=== PATIENT | male | born 1945 | race Caucasian/White ===

== ENCOUNTER 2016-11-10 21:38 | Inpatient (IN) | payer MEDICARE, BC ==
[2016-11-10] MEDS ORDERED: Albuterol/Ipratropium NEB.SOL* Albuterol 2.5 MG/Ipratropium 0.5 MG 3 ML INH ONE (22:03)
[2016-11-10 22:40] LABS: Hematocrit 40 % (42-52); Hemoglobin 13.1 g/dl (14.0-18.0); Mean Corpuscular HGB Conc 33 g/dl (31-36); Mean Corpuscular Hemoglobin 28 pg (27-31); Mean Corpuscular Volume 87 fL (80-94); Mean Platelet Volume 7 um3 (7.4-10.4); Red Blood Count 4.61 10^6/ul (4.0-5.4); Red Cell Distribution Width 13 % (10.5-15); White Blood Count 14.9 10^3/ul (3.5-10.8)
[2016-11-10 22:55] LABS: Albumin 2.9 g/dL (3.2-5.2); Calcium 8.6 mg/dL (8.6-10.3); EGFR African American 120.1 (>60); EGFR Non-African American 93.4 (>60); Potassium 3.8 mmol/L (3.5-5.0); Total Bilirubin 0.4 mg/dL (0.2-1.0); Total Protein 5.9 g/dL (6.4-8.9)
--- NOTE | 2016-11-10 22:59 | RAD ---
Indication: Shortness of breath. Comparison is made with previous exam dated October 14, 2016. 2 views of the chest including dual energy PA views are reviewed. There is left upper lobe and left lower lobe airspace disease with left pleural effusion consistent with left lower lobe pneumonia. Right lung field appears clear. Prominent interstitial markings are noted. This has increased to the left upper lobe. This may represent atypical pneumonia. IMPRESSION: Increasing infiltrate in the left lower lobe extending to the left upper lobe which may represent atypical pneumonia.
[2016-11-10] MEDS ORDERED: Iohexol 350* (CONTRAST) 500 ML MDV IV ONE (23:39)
[2016-11-11] MEDS ORDERED: Piperac/Tazob 3.375 gm in NS* 3.375 GM/100 ML BAG IVPB ONE (00:37)
[2016-11-11] MEDS ORDERED: Benzonatate CAP* 100 MG PO PRN (00:37)
--- NOTE | 2016-11-11 01:07 | ED ---
I, Jarrod,Claire, scribed for Jerrell Ochoa MD on 11/10/16 at 2207 . Shortness of Breath - HPI Summary HPI Summary: This 71 y/o male presents to ED for gradually worsening SOB since a week ago. Pt has had chest cold since a week ago and reports productive cough with yellow sputum. Pt tried to control his chest congestion with sudafed without much relief. Negative fever. Pt is Lung CA pt with last chemo 10 days ago. Chest tube was placed for left sided pleural effusion 6 weeks ago and removed a week ago. Primary care involves Dr. Bowman as his oncologist. - History of Current Complaint Chief Complaint: EDChestPainROMI Time Seen by Provider: 11/10/16 21:51 Hx Obtained From: Patient, Family/Supervisor Asbestos Removal - present at bedside Onset/Duration: Lasting Weeks - since a week ago, Still Present Dyspnea At: Rest Aggrevating Factors: Nothing Alleviating Factors: Nothing Associated Signs & Symptoms: Cough (Productive) - with yellow sputum production - Allergy/Home Medications Allergies/Adverse Reactions: Allergies Allergy/AdvReac Type Severity Reaction Status Date / Time No Known Allergies Allergy Verified 10/14/16 15:40 Home Medications: Home Medications Albuterol HFA INHALER* 2 puff INH Q4HR 11/10/16 [History Confirmed 11/10/16] Colace Cap* 1 tab PO DAILY 11/10/16 [History Confirmed 11/10/16] Sudafed TAB* 1 tab PO Q4HR 11/10/16 [History Confirmed 11/10/16] PMH/Surg Hx/FS Hx/Imm Hx Respiratory History: Reports: Hx Lung Cancer History: Reports: Hx Kidney Stones Infectious Disease History: No Infectious Disease History: Denies: Traveled Outside the [place] in Last 30 Days - Family History Known Family History: Positive: Cardiac Disease - positive CHF to father - Social History Lives: With Family Alcohol Use: None Hx Substance Use: No Substance Use Type: Reports: None Hx Tobacco Use: Yes Smoking Status (MU): Former Smoker Review of Systems Negative: Fever Positive: Shortness Of Breath, Cough - productive with yellow sputum Negative: Anxious, Depressed All Other Systems Reviewed And Are Negative: Yes Physical Exam Triage Information Reviewed: Yes Vital Signs On Initial Exam: Initial Vitals Temp Pulse Resp BP Pulse Ox 98.1 F 113 18 126/69 94 11/10/16 21:41 11/10/16 21:41 11/10/16 21:41 11/10/16 21:41 11/10/16 21:41 Vital Signs Reviewed: Yes Appearance: Positive: No Pain Distress, Ill-Appearing, Thin Skin: Positive: Warm Head/Face: Positive: Normal Head/Face Inspection Eyes: Positive: NICOLE ENT: Positive: Hearing grossly normal Neck: Positive: Supple Respiratory/Lung Sounds: Positive: Decreased Breath Sounds, Other - coarse bs l lung field Cardiovascular: Positive: Tachycardia Abdomen Description: Positive: Nontender, Soft Bowel Sounds: Positive: Present Musculoskeletal: Positive: Strength/ROM Intact Neurological: Positive: Sensory/Motor Intact, Alert, Oriented to Person Place, Time Diagnostics - Vital Signs Vital Signs Temp Pulse Resp BP Pulse Ox 11/10/16 21:41 98.1 F 113 18 126/69 94 - Laboratory Lab Results: Lab Results 11/10/16 11/10/16 11/10/16 Range/Units 22:25 22:25 22:25 WBC 14.9 H (3.5-10.8) 10^3/ul RBC 4.61 (4.0-5.4) 10^6/ul Hgb 13.1 L (14.0-18.0) g/dl Hct 40 L (42-52) % MCV 87 (80-94) fL MCH 28 (27-31) pg MCHC 33 (31-36) g/dl RDW 13 (10.5-15) % Plt Count 619 H (150-450) 10^3/ul MPV 7 L (7.4-10.4) um3 Neut % (Auto) 74.6 (38-83) % Lymph % (Auto) 9.7 L (25-47) % Marin % (Auto) 6.1 (1-9) % Eos % (Auto) 8.4 H (0-6) % Baso % (Auto) 1.2 (0-2) % Absolute Neuts (auto) 11.1 H (1.5-7.7) 10^3/ul Absolute Lymphs (auto) 1.5 (1.0-4.8) 10^3/ul Absolute Monos (auto) 0.9 H (0-0.8) 10^3/ul Absolute Eos (auto) 1.2 H (0-0.6) 10^3/ul Absolute Basos (auto) 0.2 (0-0.2) 10^3/ul Absolute Nucleated RBC 0 10^3/ul Nucleated RBC % 0 INR (Anticoag Therapy) (0.89-1.11) D-Dimer, Quantitative (Less Than 230) ng/mL Sodium 133 (133-145) mmol/L Potassium 3.8 (3.5-5.0) mmol/L Chloride 99 L (101-111) mmol/L Carbon Dioxide 26 (22-32) mmol/L Anion Gap 8 (2-11) mmol/L BUN 17 (6-24) mg/dL Creatinine 0.81 (0.67-1.17) mg/dL Est GFR ( Amer) 120.1 (>60) Est GFR (Non-Af Amer) 93.4 (>60) BUN/Creatinine Ratio 21.0 H (8-20) Glucose 114 H (70-100) mg/dL Lactic Acid 0.8 (0.5-2.0) mmol/L Calcium 8.6 (8.6-10.3) mg/dL Total Bilirubin 0.40 (0.2-1.0) mg/dL AST 14 (13-39) U/L ALT 14 (7-52) U/L Alkaline Phosphatase 100 (34-104) U/L Troponin I 0.00 (<0.04) ng/mL Total Protein 5.9 L (6.4-8.9) g/dL Albumin 2.9 L (3.2-5.2) g/dL Globulin 3.0 (2-4) g/dL Albumin/Globulin Ratio 1.0 (1-3) Influenza A (Rapid) (Negative) Influenza B (Rapid) (Negative) 11/10/16 11/10/16 Range/Units 22:25 22:49 WBC (3.5-10.8) 10^3/ul RBC (4.0-5.4) 10^6/ul Hgb (14.0-18.0) g/dl Hct (42-52) % MCV (80-94) fL MCH (27-31) pg MCHC (31-36) g/dl RDW (10.5-15) % Plt Count (150-450) 10^3/ul MPV (7.4-10.4) um3 Neut % (Auto) (38-83) % Lymph % (Auto) (25-47) % Marin % (Auto) (1-9) % Eos % (Auto) (0-6) % Baso % (Auto) (0-2) % Absolute Neuts (auto) (1.5-7.7) 10^3/ul Absolute Lymphs (auto) (1.0-4.8) 10^3/ul Absolute Monos (auto) (0-0.8) 10^3/ul Absolute Eos (auto) (0-0.6) 10^3/ul Absolute Basos (auto) (0-0.2) 10^3/ul Absolute Nucleated RBC 10^3/ul Nucleated RBC % INR (Anticoag Therapy) 1.11 (0.89-1.11) D-Dimer, Quantitative 740 H (Less Than 230) ng/mL Sodium (133-145) mmol/L Potassium (3.5-5.0) mmol/L Chloride (101-111) mmol/L Carbon Dioxide (22-32) mmol/L Anion Gap (2-11) mmol/L BUN (6-24) mg/dL Creatinine (0.67-1.17) mg/dL Est GFR ( Amer) (>60) Est GFR (Non-Af Amer) (>60) BUN/Creatinine Ratio (8-20) Glucose (70-100) mg/dL Lactic Acid (0.5-2.0) mmol/L Calcium (8.6-10.3) mg/dL Total Bilirubin (0.2-1.0) mg/dL AST (13-39) U/L ALT (7-52) U/L Alkaline Phosphatase (34-104) U/L Troponin I (<0.04) ng/mL Total Protein (6.4-8.9) g/dL Albumin (3.2-5.2) g/dL Globulin (2-4) g/dL Albumin/Globulin Ratio (1-3) Influenza A (Rapid) Negative (Negative) Influenza B (Rapid) Negative (Negative) Result Diagrams: 11/10/16 22:25 11/10/16 22:25 Lab Statement: Any lab studies that have been ordered have been reviewed, and results considered in the medical decision making process. - Radiology CXR Xray Interpretation: Positive (See Comments) - Increasing infiltrate in the left lower lobe extending to the left upper lobe which may represent atypical pneumonia. Radiology Interpretation Completed By: Radiologist - CT CTA chest/thorax CT Interpretation: Positive (See Comments) - Irregular pleural thickening throughout the left hemithroax consistent with neoplasm which may be metastatic. Pleural masses are noted in the fissures. THere is a masslike area of consolidation in the lower thorax. Multiple pulmonary nodules noted in corinne right hemithorax likely metastatic. Moderate to severe emphysema noted. right adenal mass noted. CT Interpretation Completed By: Radiologist - EKG 2148 Cardiac Rate: Tachycardia - 106 bpm EKG Rhythm: Sinus Tachycardia Re-Evaluation - Re-Evaluation First Eval Re-Evaluation Time: 23:15 Change: Improved Comment: MD in room to update pt and on CXR imaging and bloodwork results. Course/Dx - Diagnoses Provider Diagnoses: Pneumonia - Physician Notifications Discussed Care of Patient With: Dr. Kendall (Hospitalist) paged at 2316 PM. Call returned at 2317 PM Time Discussed With Above Provider: 23:17 Instructed by Provider To: Admit As Inpatient - Critical Care Time Critical Care Time: 30-74 min Discharge - Discharge Plan Condition: Stable Disposition: ADMITTED TO [facility] The documentation as recorded by the Jarrod young Soohyun accurately reflects the service I personally performed and the decisions made by me, Jerrell Ochoa MD.
[2016-11-11] MEDS: Albuterol HFA INHALER* 8 gm MDI INH SCH ×4 (02:12→12:00)
[2016-11-11] MEDS ORDERED: NS 0.9% 250 ML* 250 ML ONE (02:24)
[2016-11-11] MEDS: Azithromycin IV(*) 500 MG in NS 0.9% 250 ML* 250 ML IVPB SCH (02:32)
[2016-11-11] MEDS: Heparin VIAL(*) 5000 UNITS/ML VIAL (FIVE THOUSAND) SUBCUT SCH ×3 (05:27→22:00)
--- NOTE | 2016-11-11 07:56 | RAD ---
INDICATION: Shortness breast history of lung carcinoma, elevated d-dimer. COMPARISON: Comparison is made to prior CT of the chest, abdomen and pelvis from October 14, 2016. TECHNIQUE: A CT angiogram of the chest was performed with intravenous following intravenous injection of 64 ml of Omnipaque 350 nonionic contrast. Contiguous axial sections were obtained from the lung apices through the lung bases. Images were reconstructed in the coronal and sagittal planes. FINDINGS: There is relatively homogeneous opacification of the pulmonary arteries. No intraluminal filling defect or pulmonary embolism is seen. The heart appears mildly enlarged. There is a pxmr-xr-clwupdia sized pericardial effusion which has increased in size from the prior study. The thoracic aorta is normal in caliber and demonstrates homogeneous contrast opacification. There are enlarged lymph nodes present within the mediastinum in the aorticopulmonary and subcarinal regions measuring up to 1.5 cm in transverse dimension which appear to progressed slightly from the prior study. There is nodular pleural thickening present throughout the left hemithorax with more prominent nodular masses present at the left lung base which have progressed from the prior exam. There is also nodular pleural thickening along the major fissure. There are multiple small pulmonary nodules within the right lung which have increased in size from the prior exam. The largest nodule measures up to 0.8 cm in size in previously measured up to 0.4 cm in size. There is moderate bilateral emphysematous change. There is a moderate size right pleural effusion and a small left pleural effusion which have also progressed. There are several hypodense hepatic lesions. The majority of these appear to be fluid density and likely represent cysts. No significant focal osseous abnormality is seen. IMPRESSION: 1. NO EVIDENCE FOR PULMONARY EMBOLISM. 2. SMALL TO MODERATE-SIZE PERICARDIAL EFFUSION SLIGHTLY INCREASED IN SIZE. 3. MODERATE SIZE RIGHT PLEURAL EFFUSION AND SMALL LEFT PLEURAL EFFUSION. THE RIGHT PLEURAL EFFUSION HAS INCREASED IN SIZE. 4. NODULAR PLEURAL THICKENING THROUGHOUT THE LEFT HEMITHORAX DEMONSTRATING INTERVAL PROGRESSION. 5. MULTIPLE PULMONARY NODULES IN THE RIGHT LUNG DEMONSTRATING INTERVAL PROGRESSION.
[2016-11-11] MEDS: Docusate CAP* 100 MG PO SCH (08:05)
[2016-11-11] MEDS: Folic Acid TAB* 1 MG PO SCH (08:06)
[2016-11-11] MEDS ORDERED: Albuterol/Ipratropium NEB.SOL* Albuterol 2.5 MG/Ipratropium 0.5 MG 3 ML INH PRN (10:22)
[2016-11-11] MEDS ORDERED: Hemorrhoidal OINT PR PRN (10:25)
--- NOTE | 2016-11-11 13:58 | HP ---
HISTORY AND PHYSICAL: DATE OF ADMISSION: 11/11/16 CHIEF COMPLAINT: Chest pain. HISTORY OF PRESENT ILLNESS: The patient is a 71-year-old gentleman who says he started having chest pain from coughing so much from his phlegm that he had to come to the ER for evaluation. He has a cough since August and it is occasionally productive of yellow thick phlegm. He has had a lot of postnasal drip and is also using quite a bit of Sudafed to help dry that up. That sometimes work, but he can only usually for 2 hours. He denies any blood in his sputum. He has not been sleeping well either, but he has no fever. He came in today because of the chest pain, which he admits is worse with the cough. It is in the center, it does not radiate. He has no nausea, vomiting associated with it. He had 2 cycles of chemo last Thursday. He is due for another cycle this November 11. 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 CURRENT MEDICATIONS: As follows: 1. Colace 1 tablet daily. 2. Albuterol inhaler 2 puffs every 4 hours as needed. 3. Sudafed 1 tablet every 4 hours. 4. Folic acid 1 mg daily. ALLERGIES: He has no known drug allergies. FAMILY HISTORY: Father of congestive heart failure. He has 14 brothers and sisters; one in an automobile accident, the other in a fire, one brother was a smoker who of lung cancer at age 55, and another brother of an CO in his 50s. SOCIAL HISTORY: The patient is . Lives with his , John, who is also his healthcare proxy. He is retired. Still smokes 4 to 5 cigarettes a day , was smoking up to a pack a day and has been smoking since age 14. At this point, he does not think he can stop. REVIEW OF SYSTEMS: A 14-point review of systems was completed with the patient. All pertinent positives and negatives are in the history of present illness, otherwise it is negative. PHYSICAL EXAMINATION GENERAL: A pleasant gentleman, lying in bed, in no acute distress. VITAL SIGNS: Temperature 98.4 degrees, heart rate 99 beats per minute, respiratory rate 20 breaths per minute, pulse ox 93%, and blood pressure 109/65. HEENT: Normocephalic and atraumatic. Pupils are equal, round, and reactive to light. Moist mucous membranes. NECK: Supple. No JVD, bruits, palpable thyroid or lymphadenopathy. CHEST: Clear to auscultation and percussion bilaterally. CARDIOVASCULAR: S1, S2 appreciated. ABDOMEN: Positive bowel sounds in all 4 quadrants. Soft, nontender, and nondistended. EXTREMITIES: No cyanosis, clubbing, or edema; +2 peripheral pulses bilaterally. NEUROLOGIC: Alert and oriented x3. Moves all extremities. SKIN: No rashes or abnormalities. DIAGNOSTIC STUDIES/LAB DATA: White count is 14.9, hemoglobin 13.1, hematocrit 40, and platelets 619. Sodium 133, potassium 3.8, chloride 99, CO2 of 26, BUN 17, creatinine 0.81, and glucose 114. INR is 1.11. D-dimer is 740. Influenza A is negative. CTA of his chest was interpreted by the night reader as no filling defects were seen in the main, central or proximal segmental pulmonary arteries. Irregular pleural thickening throughout with left hemithorax consistent with neoplasm, which may be metastatic. Pleural masses are noted in the tissue. There is a mass-like area of consolidation in the lower thorax. Multiple pulmonary nodules in the right hemithorax, likely metastatic. Goyfigfm-sh-wxfink emphysema noted. Right adrenal mass noted. ASSESSMENT AND PLAN: 1. Chest pain: Almost certainly from cough associated with his lung cancer. Less likely pneumonia. For now, we will start him on Zosyn and Zithromax. Oncology to see in the morning. If the patient remains afebrile and his labs are fairly unremarkable, and his symptoms remain the same, he may be able to go home as early as the next day. We will check sputum C and S, urine for legionella and pneumococcal antigen. 2. Stage IV lung cancer: Chemotherapy and treatment as per Oncology. 3. DVT prophylaxis: Heparin subcu. 4. Code status: The patient is a full code. TIME SPENT: Over 75 minutes were spent on this H and P; more than 40 minutes of which were spent in direct pikx-sz-eoeg contact with the patient, in evaluation, physical exam, counseling, and coordination of care. CC: Kaleb Bowman MD * [id number]/CPS #: [id number] JAROCHO
[2016-11-11] MEDS: Ibuprofen TAB* 400 MG PO PRN (15:59)
--- NOTE | 2016-11-11 16:28 | ECHO ---
Patient: GOSIA MCGUIRE [facility] Rec#: [id number] : 1945 Date: 11/11/2016 Age: 71y Height: 170.18 cm / 67.0 in Weight: 63.5 kg / 140.0 lbs Sex: M BSA: 1.74 Room#: [facility] Admit Date#: 11/11/2016 Type: Inpatient Referring: Kaleb Bowman MD Reading: Dg Gray MD Manager Talent: Jeana Moss RN RDCS Manager Talent: Clementine Schuster CC: Edin Olivera MD Transthoracic Echocardiogram Indication: SOB, Pericardial Effusion BP: 119/65 HR: 93 Rhythm: NSR Findings History: Lung Cancer, chemotherapy, 1 week post removal of chest tube for left pleural effusion, former smoker, HLD. Technical Comments: The study is technically limited due to the patient's smoking history. Completed at 1405. Left Ventricle: The left ventricular chamber size is normal. There is a prominent septal knuckle. Global left ventricular wall motion and contractility are within normal limits. There is normal left ventricular systolic function. The estimated ejection fraction is 60-65%. There is an E to A reversal in the mitral valve flow pattern suggestive of diastolic dysfunction. Left Atrium: The left atrial chamber size is normal. Right Ventricle: Moderator Band present. The right ventricle is slightly dilated. The right ventricular global systolic function is normal. Right Atrium: The right atrial cavity size is normal. Aortic Valve: The aortic valve is trileaflet. The aortic valve leaflets are mildly thickened. There is no evidence of aortic regurgitation. There is no evidence of aortic stenosis. Mitral Valve: The mitral valve leaflets are mildly thickened. There is a trace of mitral regurgitation. There is no evidence of mitral stenosis. Tricuspid Valve: The tricuspid valve leaflets are normal. There is mild tricuspid regurgitation. Unable to estimate the right ventricular systolic pressure. There is no tricuspid stenosis. Pulmonic Valve: The pulmonic valve appears normal. There is mild pulmonic regurgitation. There is no pulmonic stenosis. Pericardium: There is a small pericardial effusion. There are no signs of significant hemodynamic compromise. A left pleural effusion is present. Aorta: There is no dilatation of the ascending aorta. The aortic arch is not well visualized. There is no dilation of the aortic root. Pulmonary Artery: The main pulmonary artery appears normal. Venous: The inferior vena cava appears normal in size. There is a greater than 50% respiratory change in the inferior vena cava dimension. Conclusions Global left ventricular wall motion and contractility are within normal limits. There is normal left ventricular systolic function. The estimated ejection fraction is 60-65%. The right ventricular global systolic function is normal. The aortic valve leaflets are mildly thickened. There is no evidence of aortic regurgitation. There is a trace of mitral regurgitation. There is mild tricuspid regurgitation. Unable to estimate the right ventricular systolic pressure. There is a small pericardial effusion. There are no signs of significant hemodynamic compromise. A left pleural effusion is present. There is no dilatation of the ascending aorta. Measurements Name Value Normal Range RVDdMajor (2D) 4.5 cm (2.2 - 4.4) RAd ISD 4CH 4.8 cm (3.4 - 4.9) RA (A4C)W 4.5 cm (2.9 - 4.6) IVSd (2D) 0.9 cm (0.6 - 1) LVPWd (2D) 0.9 cm (0.6 - 1) LVIDd (2D) 3.7 cm (3.6 - 5.4) LVIDs (2D) 3 cm - LV FS 19 % - Aortic Annulus 1.7 cm (1.4 - 2.6) Ao root diameter (2D) 3 cm (2.1 - 3.5) Ascending Ao 3.3 cm (2.1 - 3.4) LA dimension (AP) 2D 3 cm (2.3 - 3.8) LAd ISD 4CH 4.2 cm (2.9 - 5.3) LA ISD 4CH W 3.8 cm (2.5 - 4.5) Name Value Normal Range LA ESV SP 4CH (A/L) 31 ml - LA ESV SP 2CH (A/L) 38 ml - LA ESV BP (A/L) 36 ml - LA ESV BP (A/L) index 20.82 ml/m2 - LA ESV SP 4CH (MOD) 28 ml - LA ESV SP 2CH (MOD) 36 ml - Name Value Normal Range MV E-wave Vmax 0.7 m/sec - MV deceleration time 265 msec - MV A-wave Vmax 0.95 m/sec - MV E:A ratio 0.7 ratio - Name Value Normal Range AV Vmax 1.7 m/sec - AV VTI 28 cm - AV peak gradient 11.16 mmHg - AV mean gradient 7.02 mmHg - LVOT Vmax 1.3 m/sec - LVOT VTI 19 cm - LVOT peak gradient 6.42 mmHg - LVOT mean gradient 3.02 mmHg - Name Value Normal Range IVC diameter 1.4 cm - Name Value Normal Range PV Vmax 1 m/sec - PV peak gradient 3.95 mmHg -
[2016-11-11] MEDS: Albuterol 2.5 MG/3 ML NEB.SOL* (0.083%) INH SCH ×3 (16:36→23:20)
[2016-11-11] MEDS ORDERED: Zolpidem TAB* 5 MG PO PRN (21:00)
[2016-11-12] MEDS: Azithromycin IV(*) 500 MG in NS 0.9% 250 ML* 250 ML IVPB SCH (01:52)
[2016-11-12] MEDS: Albuterol 2.5 MG/3 ML NEB.SOL* (0.083%) INH SCH ×2 (03:47→07:50)
[2016-11-12 04:02] VITALS: BP 109/65
[2016-11-12] MEDS: Heparin VIAL(*) 5000 UNITS/ML VIAL (FIVE THOUSAND) SUBCUT SCH (06:14)
[2016-11-12 07:07] LABS: Hematocrit 39 % (42-52); Hemoglobin 12.9 g/dl (14.0-18.0); Mean Corpuscular HGB Conc 33 g/dl (31-36); Mean Corpuscular Hemoglobin 29 pg (27-31); Mean Corpuscular Volume 87 fL (80-94); Mean Platelet Volume 8 um3 (7.4-10.4); Red Blood Count 4.52 10^6/ul (4.0-5.4); Red Cell Distribution Width 13 % (10.5-15); White Blood Count 12.7 10^3/ul (3.5-10.8)
[2016-11-12 08:16] LABS: BUN/Creatinine Ratio 15.3 (8-20); Calcium 8.5 mg/dL (8.6-10.3); EGFR African American 113.6 (>60); EGFR Non-African American 88.4 (>60); Potassium 4.3 mmol/L (3.5-5.0)
[2016-11-12] MEDS: Docusate CAP* 100 MG PO SCH (08:56)
[2016-11-12] MEDS: Ibuprofen TAB* 400 MG PO PRN (08:56)
[2016-11-12] MEDS: Folic Acid TAB* 1 MG PO SCH (08:56)
[2016-11-12] MEDS ORDERED: Albuterol 2.5 MG/3 ML NEB.SOL* (0.083%) INH SCH ×2 (10:00→13:00)
[2016-11-12] MEDS ORDERED: Nicotine GUM* 2 MG PO PRN (10:20)
== END 2016-11-12 13:05 | disposition home or self-care (01) | DRG 194 ==
LOC: ED 21:38 → MEDTELE 11-11 00:50 → MED 11-12 02:50
PROVIDERS: ADMIT Internal Medicine; ATTEND Internal Medicine Hematology & Oncology
DX: J18.9 Pneumonia, unspecified organism (principal); C34.90 Malignant neoplasm of unspecified part of unspecified bronchus or lung; I31.3 Pericardial effusion (noninflammatory); E78.5 Hyperlipidemia, unspecified; F17.210 Nicotine dependence, cigarettes, uncomplicated; R09.82 Postnasal drip
CPT/HCPCS: 36415; 71020; 71275; 80048; 80053; 83605; 84484; 85025; 85379; 85610; 87040; 87070; 87205; 87502; 87899; 93005; 93306; 94640; 94760; 99233; 99238; A9270-GY; J0456; J1644; J2543; Q9967

== ENCOUNTER 2016-11-27 09:17 | Inpatient (IN) | payer MEDICARE, BC ==
--- NOTE | 2016-11-27 09:46 | RAD ---
INDICATION: Neurologic changes, code astorga. COMPARISON: Comparison is made with a prior outside MRI of the brain from September 24, 2016. TECHNIQUE: Contiguous axial sections of the brain were obtained from the skull base to the vertex without contrast. FINDINGS: There are relatively large areas of decreased density in the subcortical white matter most consistent with vasogenic edema present in the inferior right frontal, right temporal and bilaterally within the parietal lobes suspicious for metastatic disease. This is a new finding from the prior MRI study there is localized mass effect with effacement of sulci without midline shift. No hemorrhage is seen. No significant focal osseous abnormality is seen. The visualized portion of the paranasal sinuses and mastoid air cells appear clear. The results of this exam were discussed with the referring clinician at 0935 hours. IMPRESSION: MULTIPLE RELATIVELY LARGE AREAS OF VASOGENIC EDEMA WITH LOCALIZED MASS EFFECT SUSPICIOUS FOR METASTATIC DISEASE IN THIS PATIENT WITH A HISTORY OF LUNG CARCINOMA. RECOMMEND AN MRI OF THE BRAIN WITHOUT AND WITH CONTRAST FOR FURTHER EVALUATION.
[2016-11-27 09:57] LABS: Hematocrit 43 % (42-52); Hemoglobin 13.9 g/dl (14.0-18.0); Mean Corpuscular HGB Conc 33 g/dl (31-36); Mean Corpuscular Hemoglobin 28 pg (27-31); Mean Corpuscular Volume 87 fL (80-94); Mean Platelet Volume 8 um3 (7.4-10.4); Red Blood Count 4.89 10^6/ul (4.0-5.4); Red Cell Distribution Width 14 % (10.5-15); White Blood Count 13.2 10^3/ul (3.5-10.8)
[2016-11-27 10:32] LABS: Albumin 3.2 g/dL (3.2-5.2); BUN/Creatinine Ratio 27.5 (8-20); Calcium 8.9 mg/dL (8.6-10.3); EGFR African American 121.9 (>60); EGFR Non-African American 94.8 (>60); Globulin 3.1 g/dL (2-4); HDL Cholesterol 41.1 mg/dL; Potassium 4.4 mmol/L (3.5-5.0); Total Bilirubin 0.6 mg/dL (0.2-1.0); Total Protein 6.3 g/dL (6.4-8.9); Troponin I 0.01 ng/mL (<0.04)
[2016-11-27] MEDS ORDERED: Gadoteridol* (CONTRAST) 279.3 MG/ML 10 ML IV ONE (10:36)
--- NOTE | 2016-11-27 11:07 | RAD ---
INDICATION: Intracerebral cerebral metastatic disease, history of lung cancer. COMPARISON: Comparison is made with a prior MRI of the brain from September 24, [address] of the brain from November 27, 2016. TECHNIQUE: Sagittal T1, axial T1, T2, susceptibility, FLAIR and diffusion-weighted images were obtained. In addition, axial, sagittal and coronal T1-weighted images were obtained following intravenous injection of 14 ml of ProHance contrast. FINDINGS: There are multiple nodular enhancing lesions present bilaterally within the frontal, temporal, parietal and occipital lobes which are new from the prior MRI study. There are relatively large areas of surrounding vasogenic edema present in the subcortical white matter causing local mass effect and displacement of the sulci. No midline shift is seen. No hemorrhage is seen. The visualized portion of the paranasal sinuses and mastoid air cells appear clear. IMPRESSION: MULTIPLE NEW ENHANCING LESIONS WITH SURROUNDING VASOGENIC EDEMA CONSISTENT WITH METASTATIC DISEASE.
--- NOTE | 2016-11-27 11:30 | RAD ---
Indication: Confusion. Single frontal view of the chest performed at 1052 hours was reviewed. Comparison is made with previous exam dated November 10, 2016. Cardiomegaly is noted. Left pleural effusion is noted. Airspace disease in left hemithorax persists. Small right pleural effusion is noted. IMPRESSION: LEFT-SIDED AIRSPACE DISEASE WITH CONSISTENT WITH PNEUMONIA WITH LEFT PLEURAL EFFUSION. FINDINGS ARE SIMILAR TO THAT SEEN PREVIOUSLY.
[2016-11-27] MEDS ORDERED: Dexamethasone IV* 4 MG/ML 5 ML VIAL (20 MG) IVPB ONE (11:41)
[2016-11-27 12:26] LABS: Urine Bilirubin Negative (Negative); Urine Glucose Negative (Negative); Urine Nitrite Negative (Negative)
--- NOTE | 2016-11-27 13:25 | ED ---
Lynnette Pope Alok, scribed for David Howell MD on 11/27/16 at 0923 . Neurological HPI - HPI Summary HPI Summary: 71 y/o male presents to the ED BIBA. Pt is unable to speak but able to nod yes and no. Pt is alert and oriented to place. Pt nods yes to being unable to speak since approximately 0830 after he woke up. EMS reports that pt's reported pt woke up normal and then suddenly victor an episode of slurred speech followed by speech aphasia. Pt points at facial pain but otherwise has no other complaints besides being unable to vocally communicate. PMHx includes stage 4 lung cancer. Pt takes xanax. Xuan Limon was called at 0922. - History of Current Complaint Stated Complaint: SLURRED SPEACH Time Seen by Provider: 11/27/16 09:22 Hx Obtained From: Patient Onset/Duration: Sudden Onset, Started minutes ago, Still Present Timing: Constant Onset Severity: Moderate Current Severity: Moderate Neurological Deficit Location: Facial, RUE, LUE, RLE, LLE Character: Weak, Impaired Speech - slurring, aphasia Aggravating: Nothing Alleviating: Nothing Associated Signs and Symptoms: Positive: Weakness, Pain - facial, Impaired Speech - slurred, aphasia Related Hx: Recent Illness - Stage 4 lung cancer - Additional Pertinent History Primary Care Physician: ANGEL - Allergy/Home Medications Allergies/Adverse Reactions: Allergies Allergy/AdvReac Type Severity Reaction Status Date / Time No Known Allergies Allergy Verified 10/14/16 15:40 Home Medications: Home Medications ALPRAZolam TAB* [Xanax TAB*] 0.25 mg PO TID PRN 11/27/16 [History Confirmed 02/07] Acetaminop/Codeine 30 MG TAB* [Tylenol/Codeine 30 MG TAB*] 1 tab PO Q8H PRN 02/07 [History Confirmed 11/27/16] Albuterol HFA INHALER* [Ventolin HFA Inhaler*] 2 puff INH Q4H PRN 11/27/16 [ History Confirmed 11/27/16] Docusate CAP* [Colace Cap*] 100 mg PO DAILY PRN 11/27/16 [History Confirmed 02/07] Folic Acid TAB* [Folvite TAB*] 1 mg PO DAILY 11/27/16 [History Confirmed ] PMH/Surg Hx/FS Hx/Imm Hx Endocrine/Hematology History: Denies: Hx Blood Disorders, Hx Diabetes Cardiovascular History: Denies: Hx Hypertension Respiratory History: Reports: Hx Lung Cancer Denies: Hx Asthma History: Reports: Hx Kidney Stones Denies: Hx Renal Disease Sensory History: Reports: Hx Contacts or Glasses Opthamlomology History: Reports: Hx Contacts or Glasses Psychiatric History: Reports: Hx Anxiety - when he cant breathe - Cancer History Cancer Type, Location and Year: LUNG CA - Surgical History Surgery Procedure, Year, and Place: CHEST. pigtail in last six weeks to left chest, due to pleral fluid. lithrotripsy x4 for stones Hx Anesthesia Reactions: No - Family History Known Family History: Positive: Cardiac Disease - positive CHF to father - Social History Occupation: Retired Lives: With Family - Alcohol Use: None Hx Substance Use: No Substance Use Type: Reports: None Hx Tobacco Use: Yes Smoking Status (MU): Former Smoker Review of Systems Negative: Fever ENT: Other - facial pain Neurological: Other - speech aphasia Positive: Weakness, Slurred Speech All Other Systems Reviewed And Are Negative: Yes Physical Exam - Summary Physical Exam Summary: VITAL SIGNS: Reviewed. GENERAL: ~Patient is a well developed and nourished male who is lying comfortable in the stretcher. ~Patient is not in any acute respiratory distress. HEAD AND FACE: Normocephalic EYES: PERRLA, EOMI x 2. EARS: Hearing grossly intact. MOUTH: Oropharynx within normal limits. NECK: Supple, trachea is midline, no adenopathy, no JVD, no carotid bruit. CHEST: Symmetric, no tenderness at palpation LUNGS: Clear to auscultation bilaterally. No wheezing or crackles. CVS: Regular rate and rhythm, S1 and S2 present, no murmurs or gallops appreciated. ABDOMEN: Soft, non-tender. Bowel sounds are normal. No abdominal abnormal pulsations. EXTREMITIES: Upper and lower extremity slight weakness. NEURO: Alert and oriented to place. Twitching right side face. Patient is unable to vocalize. SKIN: Dry and warm Triage Information Reviewed: Yes Vital Signs On Initial Exam: Vital Signs (72 hours) 11/27/16 11/27/16 11/27/16 09:31 09:32 09:33 Temperature 99.3 F Pulse Rate 105 105 Respiratory 24 27 Rate Blood Pressure 148/83 148/83 (mmHg) O2 Sat by Pulse 93 92 Oximetry 11/27/16 11/27/16 11/27/16 09:40 09:45 09:47 Temperature 99.3 F Pulse Rate 106 105 105 Respiratory 20 Rate Blood Pressure 142/81 115/70 145/86 (mmHg) O2 Sat by Pulse 95 93 92 Oximetry Vital Signs Reviewed: Yes Diagnostics - Vital Signs Vital Signs Temp Pulse Resp BP Pulse Ox 11/27/16 11:15 104 144/79 96 11/27/16 11:02 103 97 11/27/16 11:00 136/81 11/27/16 10:54 98 11/27/16 10:00 103 96 11/27/16 09:51 106 145/86 93 11/27/16 09:47 99.3 F 105 20 145/86 92 11/27/16 09:45 105 115/70 93 11/27/16 09:40 106 142/81 95 11/27/16 09:33 105 27 92 11/27/16 09:32 99.3 F 105 24 148/83 93 11/27/16 09:31 148/83 - Laboratory Lab Results: Lab Results 11/27/16 11/27/16 11/27/16 Range/Units 09:45 09:45 09:45 WBC 13.2 H (3.5-10.8) 10^3/ul RBC 4.89 (4.0-5.4) 10^6/ul Hgb 13.9 L (14.0-18.0) g/dl Hct 43 (42-52) % MCV 87 (80-94) fL MCH 28 (27-31) pg MCHC 33 (31-36) g/dl RDW 14 (10.5-15) % Plt Count 439 (150-450) 10^3/ul MPV 8 (7.4-10.4) um3 Neut % (Auto) 77.0 (38-83) % Lymph % (Auto) 7.8 L (25-47) % Frederick % (Auto) 5.8 (1-9) % Eos % (Auto) 9.1 H (0-6) % Baso % (Auto) 0.3 (0-2) % Absolute Neuts (auto) 10.2 H (1.5-7.7) 10^3/ul Absolute Lymphs (auto) 1.0 (1.0-4.8) 10^3/ul Absolute Monos (auto) 0.8 (0-0.8) 10^3/ul Absolute Eos (auto) 1.2 H (0-0.6) 10^3/ul Absolute Basos (auto) 0 (0-0.2) 10^3/ul Absolute Nucleated RBC 0 10^3/ul Nucleated RBC % 0 INR (Anticoag Therapy) 0.98 (0.89-1.11) APTT 32.0 (26.0-36.3) seconds Sodium (133-145) mmol/L Potassium (3.5-5.0) mmol/L Chloride (101-111) mmol/L Carbon Dioxide (22-32) mmol/L Anion Gap (2-11) mmol/L BUN (6-24) mg/dL Creatinine (0.67-1.17) mg/dL Est GFR ( Amer) (>60) Est GFR (Non-Af Amer) (>60) BUN/Creatinine Ratio (8-20) Glucose (70-100) mg/dL Lactic Acid (0.5-2.0) mmol/L Calcium (8.6-10.3) mg/dL Total Bilirubin (0.2-1.0) mg/dL AST (13-39) U/L ALT (7-52) U/L Alkaline Phosphatase (34-104) U/L Troponin I (<0.04) ng/mL Total Protein (6.4-8.9) g/dL Albumin (3.2-5.2) g/dL Globulin (2-4) g/dL Albumin/Globulin Ratio (1-3) Triglycerides mg/dL Cholesterol mg/dL LDL Cholesterol mg/dL HDL Cholesterol mg/dL Urine Color Yellow Urine Appearance Clear Urine pH 5.0 (5-9) Ur Specific [place] 1.016 (1.010-1.030) Urine Protein Negative (Negative) Urine Ketones 1+ H (Negative) Urine Blood Negative (Negative) Urine Nitrate Negative (Negative) Urine Bilirubin Negative (Negative) Urine Urobilinogen Negative (Negative) Ur Leukocyte Esterase Negative (Negative) Urine Glucose Negative (Negative) Blood Type Antibody Screen 11/27/16 11/27/1617 Range/Units 09:45 09:45 09:45 WBC (3.5-10.8) 10^3/ul RBC (4.0-5.4) 10^6/ul Hgb (14.0-18.0) g/dl Hct (42-52) % MCV (80-94) fL MCH (27-31) pg MCHC (31-36) g/dl RDW (10.5-15) % Plt Count (150-450) 10^3/ul MPV (7.4-10.4) um3 Neut % (Auto) (38-83) % Lymph % (Auto) (25-47) % Frederick % (Auto) (1-9) % Eos % (Auto) (0-6) % Baso % (Auto) (0-2) % Absolute Neuts (auto) (1.5-7.7) 10^3/ul Absolute Lymphs (auto) (1.0-4.8) 10^3/ul Absolute Monos (auto) (0-0.8) 10^3/ul Absolute Eos (auto) (0-0.6) 10^3/ul Absolute Basos (auto) (0-0.2) 10^3/ul Absolute Nucleated RBC 10^3/ul Nucleated RBC % INR (Anticoag Therapy) (0.89-1.11) APTT (26.0-36.3) seconds Sodium 136 (133-145) mmol/L Potassium 4.4 (3.5-5.0) mmol/L Chloride 103 (101-111) mmol/L Carbon Dioxide 25 (22-32) mmol/L Anion Gap 8 (2-11) mmol/L BUN 22 (6-24) mg/dL Creatinine 0.80 (0.67-1.17) mg/dL Est GFR ( Amer) 121.9 (>60) Est GFR (Non-Af Amer) 94.8 (>60) BUN/Creatinine Ratio 27.5 H (8-20) Glucose 104 H (70-100) mg/dL Lactic Acid 0.7 (0.5-2.0) mmol/L Calcium 8.9 (8.6-10.3) mg/dL Total Bilirubin 0.60 (0.2-1.0) mg/dL AST 16 (13-39) U/L ALT 10 (7-52) U/L Alkaline Phosphatase 121 H (34-104) U/L Troponin I 0.01 (<0.04) ng/mL Total Protein 6.3 L (6.4-8.9) g/dL Albumin 3.2 (3.2-5.2) g/dL Globulin 3.1 (2-4) g/dL Albumin/Globulin Ratio 1.0 (1-3) Triglycerides 109 mg/dL Cholesterol 174 mg/dL LDL Cholesterol 111 mg/dL HDL Cholesterol 41.1 mg/dL Urine Color Urine Appearance Urine pH (5-9) Ur Specific [place] (1.010-1.030) Urine Protein (Negative) Urine Ketones (Negative) Urine Blood (Negative) Urine Nitrate (Negative) Urine Bilirubin (Negative) Urine Urobilinogen (Negative) Ur Leukocyte Esterase (Negative) Urine Glucose (Negative) Blood Type A Positive Antibody Screen Negative Result Diagrams: 11/27/16 09:45 11/27/16 09:45 Lab Statement: Any lab studies that have been ordered have been reviewed, and results considered in the medical decision making process. - Radiology Brain MRI Xray Interpretation: Positive (See Comments) - IMPRESSION: MULTIPLE NEW ENHANCING LESIONS WITH SURROUNDING VASOGENIC EDEMA CONSISTENT WITH METASTATIC DISEASE. Radiology Interpretation Completed By: Radiologist CXR Xray Interpretation: Positive (See Comments) - IMPRESSION: LEFT-SIDED AIRSPACE DISEASE WITH CONSISTENT WITH PNEUMONIA WITH LEFT PLEURAL EFFUSION. FINDINGS ARE SIMILAR TO THAT SEEN PREVIOUSLY. Radiology Interpretation Completed By: Radiologist - CT Brain CT CT Interpretation: Positive (See Comments) - IMPRESSION: MULTIPLE RELATIVELY LARGE AREAS OF VASOGENIC EDEMA WITH LOCALIZED MASS EFFECT SUSPICIOUS FOR METASTATIC DISEASE IN THIS PATIENT WITH A HISTORY OF LUNG CARCINOMA. RECOMMEND AN MRI OF THE BRAIN WITHOUT AND WITH CONTRAST FOR FURTHER EVALUATION. CT Interpretation Completed By: Radiologist - EKG 0929 Cardiac Rate: Tachycardia EKG Rhythm: Sinus Tachycardia - 106 bpm EKG Interpretation: No ST elevation NIH Scale - NIH Scale Level of Consciousness: Alert/Keenly Responsive Ask Patient the Month and His/Her Age: Both Correct Ask Pt to Open/Close Eyes and Business Continuity Management Director/Release Non-Paretic Hand: Both Correctly Best Gaze (Only Horizontal Eye Movement): Normal Visual Field Testing: No Visual Loss Facial Paresis-Pt to Smile & Close Eyes or Grimace Symmetry: Normal/Symmetrical Motor Function - Right Arm: Drifts LT 10 seconds Motor Function - Left Arm: No Drift-Holds 10 Seconds Motor Function - Right Leg: Drifts LT 10 seconds Motor Function - Left Leg: No Drift-Holds 10 Seconds Limb Ataxia-Must be out of Proportion to Weakness Present: Absent Sensory (Use Pinprick to Test Arms/Legs/Trunk/Face): Normal Best Language (Describe Picture, Name Items): Severe Aphasia Dysarthria (Read Several Words): Unintelligible or Mute Extinction and Inattention: No Abnormality Total Score: 6 Re-Evaluation - Re-Evaluation First Eval Re-Evaluation Time: 11:42 Course/Dx - Course Course Of Treatment: 71 y/o male presents to the ED BIBA. Pt is unable to speak but able to nod his head for yes and no. Pt is alert and oriented to place. Pt nods yes to being unable to speak since approximately 0830 after he woke up. EMS reports that pt's reported pt woke up normal and then suddenly victor an episode of slurred speech followed by speech aphasia. Pt points at facial pain but otherwise has no other complaints besides being unable to vocally communicate. PMHx includes stage 4 lung cancer. Pt takes xanax. Xuan Limon was called at 0922. Assessment/Plan: Blood work within normal limits except WBC 13.2 H with no bandemia. Glucose 104 H. Urine Negative. Head CT shows IMPRESSION: MULTIPLE RELATIVELY LARGE AREAS OF VASOGENIC EDEMA WITH LOCALIZED MASS EFFECT SUSPICIOUS FOR METASTATIC DISEASE IN THIS PATIENT WITH A HISTORY OF LUNG CARCINOMA. RECOMMEND AN MRI OF THE BRAIN WITHOUT AND WITH CONTRAST FOR FURTHER EVALUATION. Following Head CT did Brain MRI which shows IMPRESSION: MULTIPLE NEW ENHANCING LESIONS WITH SURROUNDING VASOGENIC EDEMA CONSISTENT WITH METASTATIC DISEASE. Pt continues to have some right sided weakness and was given Dexamethasone IV. Discussed case with Dr. Taylor (Oncology) who agreed to admit pt for further workup and management. She also mentioned that pt does not require neurosurgery consult at this time. If needed she will as for consult from neurosurgery. She also does not want any anti-seizure medication. Pt is hemodynamically stable. Alert and oriented . Everything was discussed and agreed upon by the pt and the pts . - Differential Dx Differential Diagnoses Neuro: Positive: Tapia's Palsy, Cerebrovascular Accident, Seizure Disorder, Transient Ischemic Attack - Diagnoses Provider Diagnoses: Cerebral edema, Metastatic disease During the Visit The Following Alert/Code Occurred: Code Limon - Called 921 - Physician Notifications Discussed Care of Patient With: Dr. Taylor (Hematology) @ 1140 - agrees to giving pt dextromethasone. Does not allow anti-seizure medications. Will admit pt. Discharge - Discharge Plan Condition: Guarded Disposition: ADMITTED TO [facility] documentation as recorded by the Lynnette young Alok accurately reflects the service I personally performed and the decisions made by , David Howell MD.
[2016-11-27] MEDS ORDERED: Docusate CAP* 100 MG PO PRN (14:02)
[2016-11-27] MEDS ORDERED: Albuterol HFA INHALER* 8 gm MDI INH PRN (14:02)
[2016-11-27] MEDS ORDERED: Acetaminop/Codeine 30 MG TAB* 1 TAB (300 MG/30 MG) PO PRN (14:02)
[2016-11-27] MEDS ORDERED: LORazepam INJ* 2 MG/ML 1 ML VIAL IV PUSH PRN (14:02)
[2016-11-27] MEDS: levETIRAcetam 500 MG IVPREMIX* 500 MG/100 ML BAG IV SCH (15:49)
[2016-11-27] MEDS ORDERED: Dexamethasone IV* 4 MG in NS 0.9% 50 ML* 50 ML IVPB SCH (18:00)
[2016-11-27] MEDS: Dexamethasone IV* 4 MG/ML 1 ML (4 MG) IVPB SCH (18:32)
[2016-11-28] MEDS: Dexamethasone IV* 4 MG/ML 1 ML (4 MG) IVPB SCH ×5 (00:09→21:45)
[2016-11-28] MEDS: levETIRAcetam 500 MG IVPREMIX* 500 MG/100 ML BAG IV SCH ×2 (02:54→15:36)
--- NOTE | 2016-11-28 05:12 | RADMED ---
RADIATION ONCOLOGY CONSULTATION NOTE: DATE OF CONSULT: 11/27/16 - ROOM #[id number] REFERRING PHYSICIAN: CECELIA Bernard DIAGNOSIS: Metastatic non-small cell lung cancer, AJCC stage IV. HISTORY OF PRESENT ILLNESS: Mr. Monet is a 71-year-old gentleman with metastatic non-small cell lung cancer, diagnosed in the early portion of 2017. Pleural effusion was tapped on 09/12/16 with cytology identifying metastatic adenocarcinoma of lung origin. He received systemic therapy, and presents with acute onset of aphasia, weakness, and twitching this morning, presenting to the emergency department, and brain MRI obtained earlier today identifies multiple enhancing lesions throughout the cerebral hemispheres with associated vasogenic edema consistent with multifocal metastatic disease. He is referred for consideration of urgent whole brain radiation therapy. PAST MEDICAL HISTORY: Lung cancer, as in the history of present illness. 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 MEDICATIONS: As per the inpatient record. ALLERGIES: No known drug allergies. FAMILY HISTORY: Noncontributory. SOCIAL HISTORY: He is and is accompanied right now by his and daughter who provide the majority of the history, although the patient does participate to the extent that he is capable, indicating negative and affirmative with thumbs up or thumbs down. REVIEW OF SYSTEMS: Unobtainable. PHYSICAL EXAM: Vital Signs: Temperature 99.3, pulse rate 105, respiratory rate 20, oxygen saturation 92% on oxygen via nasal cannula, blood pressure 145/ 86. General: He is aphasic. He is awake and appears alert, follows commands, and is engaged with our conversation and does indicate he is able to understand my speech and language, although he is aphasic. Moves all 4 of his extremities. Abdomen: Soft and nontender. Lungs with symmetric air entry. Coarse rhonchi. Cardiovascular: S1, S2, regular. PATHOLOGY AND RADIOLOGY: Reviewed, as in the history of present illness. ASSESSMENT AND PLAN: Mr. Monet is a 71-year-old gentleman with recently diagnosed metastatic non-small cell lung cancer, and multiple brain metastases. I did review his history as well as the pathologic and radiographic findings, and discussed at some length with the patient and his family. I explained the finding of brain metastasis, and concern for his acute decompensation, and the potential for underlying seizure problems potentially contributing. He has been started on steroids, and planned for antiepileptic drugs, and I explained the logistics and rationale for palliative whole brain radiation therapy, risks , benefits, and alternatives, as well as the acute and long-term frequent and uncommon toxicities. I did answer their questions to the best of my ability. The patient's would be his surrogate medical decision maker and she is inclined towards treatment, but through the course of our conversation, the patient is well able to express his desire not to proceed with radiation treatment at this stage. He is not able to express his reasons why and we were not able to dive deeper into that decision making because of his acute neurocognitive status. I let them know that with medications, his steroids and antiseizure meds, hopefully symptoms could improve, and he may well be able to express himself better, hopefully in short order. If with further discussion, he would chose palliative whole brain radiation therapy, I would be happy to see him back to initiate that treatment, but for now, he is not agreeing to that plan, and is undergoing medical management for the time being. Thank you for giving me the opportunity to participate in the care of this very pleasant patient. CC: Dr. Bowman; CECELIA Bernard* [id number]/RUPA #: [id number] [facility] HOSPITALJose
[2016-11-28] MEDS: Folic Acid TAB* 1 MG PO SCH (09:13)
[2016-11-28] MEDS ORDERED: Albuterol 2.5 MG/3 ML NEB.SOL* (0.083%) INH PRN (10:56)
--- NOTE | 2016-11-28 13:01 | PN ---
Progress Note - Progress Note SOAP: Subjective: []A little better then yesterday. Twitching on right side of face is improved. Strength right side better. Speech is not improved. Has not been eating well. Agreed to XRT. Acetaminophen/Codeine Phosphate (Tylenol/Codeine 30 Mg Tab*) 1 tab PO Q8H PRN PRN Reason: PAIN Albuterol (Ventolin 2.5 Mg/3 Ml Neb.Nettie*) 2.5 mg INH Q4H PRN PRN Reason: SOB/WHEEZING Dexamethasone Sodium Phosphate (Decadron Iv*) 8 mg IVPB TID [facility] Docusate Sodium (Colace Cap*) 100 mg PO DAILY PRN PRN Reason: CONSTIPATION Folic Acid (Folvite Tab*) 1 mg PO DAILY [facility] Last Admin: 11/28/16 09:13 Dose: 1 mg Levetiracetam (Keppra Iv Premix*) 500 mg in 100 mls @ 400 mls/hr IV Q12H [facility] Last Admin: 11/28/16 02:54 Dose: 400 mls/hr Lorazepam (Ativan Inj*) 1 mg IV PUSH Q6H PRN PRN Reason: SEIZURES Objective: [] Vital Signs Temp Pulse Resp BP Pulse Ox 98.1 F 109 20 127/70 90 11/28/16 11:17 11/28/16 11:17 11/28/16 11:17 11/28/16 11:17 11/28/16 11:17 HEENT - NO LAD. Symmetirc facial expression. mucoa moist CTA, decreased sounds on right RRR S1S2 +BS, NTND EXT no edema Assessment: [] 71 year old with metastatic lung cancer to adrenal gland and abdomen. Now with new DIRECTOR MICROBIOLOGY disease. MRI with multiple lesions and he is presenting with an aphasia and right hand weakness. Plan: []1. Modest improvement with steroids and depakote. Continue and change Dex to 8 mg tid. 2. Will review MRI on Thursday with neuroradiology. Question of lesions contributing to aphasia. Consider gamma knife post WBR if partial response and continued limitations on speech. 3. WBR does [address] C/A/P to re-stage as will be stopping Pembrolizumab
--- NOTE | 2016-11-28 15:01 | RAD ---
INDICATION: Radiation therapy planning, intracerebral metastatic disease. COMPARISON: Comparison is made with a prior MRI and CT of the brain from November 27, 2016. TECHNIQUE: Contiguous axial sections of the head were obtained with the patient lying on a backboard. FINDINGS: There are multiple areas of vasogenic edema present as previously described in the frontal, parietal, temporal and occipital lobes. These cause localized mass effect with effacement of the surrounding sulci. No midline shift is noted. No hemorrhage is seen. IMPRESSION: CT FOR RADIATION THERAPY PLANNING.
[2016-11-28] MEDS ORDERED: Iohexol 300* (CONTRAST) 10 ML SDV IV SCH (17:57)
--- NOTE | 2016-11-28 19:19 | RAD ---
Indication: Lung cancer. CT of the abdomen and pelvis was performed after oral and IV contrast demonstration. Moderate size right pleural effusion is noted. Consolidative changes with suggestion of a left lower lobe mass is noted with multiloculated soft tissue components in the left lower lobe consistent with a neoplastic process. There is likely interstitial and lymphangitic spread in the left lung field. Additional nodules are noted in the right middle lobe which are increasing in size and number consistent with progressive metastases. The heart demonstrates no definite pericardial effusion. Epicardial lymph node is noted measuring 11 mm which is unchanged. The liver is normal in size. There are multiple low density lesions in the liver. Water density lesion of the left lobe of liver likely represent small cysts and are unchanged from previous exam. More inferiorly in the medial segment of the right lobe of liver just under the capsule is a 11 mm low density which is not quite water density. In the periphery of the anterior segment of the right lobe of liver is an additional 8.6 mm low density which does not appear to be water density. These are suspicious for metastatic lesions. The spleen is normal in size. Pancreas demonstrates no mass or ductal dilatation. Common duct is not dilated. There is a right adrenal mass which is low density measuring 1.7 cm. This is unchanged from November 10, 2016. The kidneys demonstrate symmetric nephrograms without solid masses. Multiple renal cysts are noted. The no retroperitoneal lymphadenopathy is noted. Mild fusiform dilatation of the aorta is noted. CT of the pelvis demonstrates urinary bladder to be unremarkable. The colon is filled with stool. No dilated loops of bowel are noted. The bony structures demonstrates lytic lesion in the superior anterior endplate of L4 consistent with a metastatic focus. This appears to progressed since October 14, 2016. IMPRESSION: MODERATE-SIZED RIGHT PLEURAL EFFUSION. NODULAR MASSLIKE DENSITIES IN THE LEFT LOWER LOBE. PULMONARY NODULES IN THE RIGHT MIDDLE LOBE APPEARS TO HAVE PROGRESSED SINCE PREVIOUS EXAM OF NOVEMBER 10, 2016. INTERSTITIAL PROMINENCE IS NOTED IN THE LEFT LUNG FIELD SUSPICIOUS FOR LYMPHANGITIC SPREAD. EPICARDIAL LYMPH NODE MEASURING UP TO 11 MM UNCHANGED FROM PREVIOUS EXAM. IN THE PERIPHERY OF THE ANTERIOR SEGMENT OF THE RIGHT LOBE AND MEDIAL SEGMENT OF LEFT LOBE THERE ARE LOW DENSITY LESIONS WHICH ARE NOT LOW DENSITY WATER DENSITY AND MAY REPRESENT METASTATIC DISEASE IN THE LIVER. RIGHT ADRENAL MASS IS UNCHANGED. THERE IS A LYTIC LESION IN THE SUPERIOR ENDPLATE OF L4 ANTERIORLY WHICH APPEARS TO HAVE PROGRESSED SINCE PREVIOUS EXAM.
[2016-11-29] MEDS: levETIRAcetam 500 MG IVPREMIX* 500 MG/100 ML BAG IV SCH (03:30)
[2016-11-29] MEDS: Folic Acid TAB* 1 MG PO SCH (08:05)
--- NOTE | 2016-11-29 08:14 | PN ---
Progress Note - Progress Note SOAP: Subjective: very pleasant but still quite aphasic. able to answer yes and no fairly clearly and when asked if he is having pain he states yes. when asked if it is headaches he states yes. Objective: Vital Signs Temp Pulse Resp BP Pulse Ox 98.1 F 93 16 115/68 92 11/28/16 23:30 11/28/16 23:30 11/28/16 23:30 11/28/16 23:30 11/28/16 23:30 sitting up in NAD perr eomi op moist CTA s1 s2 nl soft nt +bs no le edema awake, aphasic though comprehends and can follow instructions, moving all extremities Laboratory Results - last 24 hr 11/28/16 11/28/16 11/29/16 11:06 21:07 03:48 POC Glucose (mg/dL) 200 H 158 H 154 H Acetaminophen/Codeine Phosphate (Tylenol/Codeine 30 Mg Tab*) 1 tab PO Q8H PRN PRN Reason: PAIN Albuterol (Ventolin 2.5 Mg/3 Ml Neb.Nettie*) 2.5 mg INH Q4H PRN PRN Reason: SOB/WHEEZING Dexamethasone Sodium Phosphate (Decadron Iv*) 8 mg IVPB TID [facility] Last Admin: 11/28/16 21:45 Dose: 8 mg Docusate Sodium (Colace Cap*) 100 mg PO DAILY PRN PRN Reason: CONSTIPATION Folic Acid (Folvite Tab*) 1 mg PO DAILY [facility] Last Admin: 11/28/16 09:13 Dose: 1 mg Iohexol (Omnipaque 300* (Contrast)) 80 ml IV ONCE [facility] Stop: 11/30/16 17:56 Last Admin: 11/28/16 18:56 Dose: 80 ml Levetiracetam (Keppra Tab*) 500 mg PO BID [facility] Lorazepam (Ativan Inj*) 1 mg IV PUSH Q6H PRN PRN Reason: SEIZURES Assessment: 71 yo M w metastatic lung cancer on Keytruda presenting with aphasia and found to have clear progression of disease with multiple brain mets with edema. Systemic imaging also with progression. Getting dex and WBRT. Plan: -cont WBRT -PT/OT/Speech therapy -likely dc tomorrow with fu with Dr. Bowman as planned and RT as outpatient -cont dexamethasone IV for now -switch keppra to PO
[2016-11-29] MEDS: Dexamethasone IV* 4 MG/ML 1 ML (4 MG) IVPB SCH ×3 (08:17→20:15)
[2016-11-29] MEDS ORDERED: levETIRAcetam TAB* 500 MG PO SCH (09:00)
[2016-11-29 09:27] LABS: Hematocrit 41 % (42-52); Hemoglobin 13.5 g/dl (14.0-18.0); Mean Corpuscular HGB Conc 33 g/dl (31-36); Mean Corpuscular Hemoglobin 28 pg (27-31); Mean Corpuscular Volume 86 fL (80-94); Mean Platelet Volume 8 um3 (7.4-10.4); Red Blood Count 4.75 10^6/ul (4.0-5.4); Red Cell Distribution Width 14 % (10.5-15); White Blood Count 30.4 10^3/ul (3.5-10.8)
[2016-11-29 09:28] LABS: Add Diff/Slide Review? Slide Review Added; Comments Flag Yes
[2016-11-29 09:44] LABS: BUN/Creatinine Ratio 44.9 (8-20); Calcium 8.8 mg/dL (8.6-10.3); EGFR African American 144.5 (>60); EGFR Non-African American 112.4 (>60); Potassium 3.7 mmol/L (3.5-5.0)
[2016-11-29] MEDS ORDERED: levETIRAcetam TAB* 500 MG ONE (10:33)
[2016-11-29] MEDS: levETIRAcetam TAB* 500 MG PO SCH ×2 (10:39→20:14)
--- NOTE | 2016-11-29 13:11 | RAD ---
INDICATION: Lung carcinoma COMPARISON: CTA chest November 10, 2016 TECHNIQUE: Noncontrast axial source images were obtained from the thoracic inlet to the hemidiaphragms. Coronal and sagittal reconstructed images were acquired. The visualized neck to include the thyroid appear normal. Chest wall: There is a lytic focus involving T11 which was not clearly evident previously there is mild compression of T6 with a subtle lytic focus involving the posterior vertebral body. These represent new findings. There is no supraclavicular, infraclavicular, or axillary lymphadenopathy. Lungs : There is minimal atelectasis in the right lung base. There is nodular infiltrative change emanating from the left infrahilar region similar to prior imaging. Adjacent coarse interstitial change suggests lymphangitic spread of tumor.. Multiple discrete pulmonary parenchymal nodules are seen bilaterally.. Cardiomediastinal structures: The heart is normal in size. There is no pericardial effusion. There is no evidence of aortic aneurysm or dissection. The pulmonary vessels appear normal. There is mild mediastinal lymphadenopathy with lymph nodes measuring up to 1.3 cm in short axis. This is similar to prior imaging. There are mildly enlarged epicardial lymph nodes appearing unchanged. The esophagus appears normal. Pleura : There is extensive studding of the pleura with multiple pleural-based nodules. There is a moderate to large right-sided pleural effusion essentially unchanged. There is loculated pleural fluid in the major fissure, unchanged. Other: There are no acute CT findings of the visualized upper abdomen. Please refer to CT abdomen and pelvis report dated November 28, 2016 IMPRESSION: 1. Moderate sized right-sided pleural effusion, unchanged. 2. Masslike infiltrative change emanating from the left infrahilar region similar to prior imaging. Multiple discrete pulmonary parenchymal nodules are noted bilaterally. Probable lymphangitic spread of tumor left lower lobe. These findings are unchanged. 3. Extensive studding of the mesentery. Mediastinal and epicardial lymphadenopathy, unchanged. 4. Suspect new lytic foci in T11 and T6.
[2016-11-30 07:56] VITALS: BP 119/70
[2016-11-30] MEDS: Dexamethasone IV* 4 MG/ML 1 ML (4 MG) IVPB SCH (08:38)
[2016-11-30] MEDS: Folic Acid TAB* 1 MG PO SCH (08:38)
[2016-11-30] MEDS: levETIRAcetam TAB* 500 MG PO SCH (08:38)
--- NOTE | 2016-12-01 02:29 | DS ---
DISCHARGE SUMMARY: DATE OF ADMISSION: 11/27/16 DATE OF DISCHARGE: 11/30/16 PRIMARY ONCOLOGIST: Dr. Bowman. DISCHARGING PROVIDER: CECELIA Urbina. SUPERVISING PHYSICIAN: Dr. Zeng.* (DICTATED BY CECELIA URBINA) PRIMARY DISCHARGE DIAGNOSES: 1. Metastatic lung cancer with new brain metastasis. 2. Expressive aphasia. DISCHARGE MEDICATIONS: 1. Xanax 0.25 mg p.o. t.i.d. as needed for anxiety. 2. Acetaminophen with codeine 1 tablet p.o. q.8 hours as needed for pain. 3. Albuterol inhaler 2 puffs inhaled q.4 hours as needed for shortness of breath. 4. Dexamethasone 8 mg p.o. t.i.d. 5. Docusate 100 mg p.o. daily. 6. Folic acid 1 mg p.o. daily. 7. Keppra 500 mg p.o. b.i.d. MEDICATION CHANGES: 1. Start dexamethasone. 2. Start Keppra. HOSPITAL IMAGIN. CT of the brain, 11/27/16, shows multiple relatively large areas of vasogenic edema with localized mass effect suspicious for metastatic disease. 2. Chest x-ray, 11/27/16, shows left-sided airspace disease consistent with pneumonia with a left pleural effusion. Findings are similar to that seen previously. 3. MRI of the brain, 11/27/16, multiple new enhancing lesions with surrounding vasogenic edema consistent with metastatic disease. 4. CT of the abdomen and pelvis, 11/28/16, shows a moderate right-sided pleural effusion and nodular-like mass densities in the left lower lobe as well as pulmonary nodules in the right middle lobe appeared to have progressed since prior exam of November 10. Interstitial prominence is noted in the left lung field suspicious for lymphangitic spread. Epicardial lymph node measuring up to 11 mm unchanged from prior. In the periphery of the anterior segment of the right lobe and medial segment of the left lobe, there are low density lesions, which are not as low density as water density and may represent metastatic disease in the liver. 5. Right adrenal mass is unchanged. 6. Lytic lesion in the superior endplate of L4 anteriorly, which appears to have progressed since prior exam. 7. CT of the chest shows a moderate right-sided pleural effusion, which is unchanged. There is mass-like infiltrative change emanating from the left infrahilar region similar to prior imaging as well as multiple discrete pulmonary parenchymal nodes noted bilaterally and probable lymphangitic spread of the tumor in the left lower lobe. These findings are unchanged. There is also extensive studding of the mesentery, mediastinal, and epicardial lymphadenopathy, which is unchanged as well as suspicious new lytic focus in T11 and T6. HOSPITAL COURSE: This is a 71-year-old gentleman with metastatic lung cancer, under the care Dr. Bowman, currently treated with Keytruda, who presents to the emergency department with complaints of aphasia. Please see detailed H and P from Ayaka Mathews NP with the oncology group for more details. Initial imaging included a CT of the brain demonstrated multiple areas of vasogenic edema suspicious for metastatic disease. MRI of the brain completed later confirmed that suspicion with multiple new lesions present. The patient was started on dexamethasone and Keppra. He met with radiation oncologist, Dr. Ortiz, regarding whole brain radiation for palliation. The patient initially declined this therapy and later agreed. The patient's speech improved slightly during his hospital stay. No seizure activity noted. No complaints of weakness. No other complications noted. DISPOSITION: The patient is being discharged to home where he lives with his . Referral initiated for home health care services. He has followup scheduled with Dr. Bowman and will plan to initiate whole brain radiation therapy. Discharged with dexamethasone and Keppra as described above. CECELIA URBINA CC: Dr. Bowman* [id number]/[facility] #: [id number] [facility]
== END 2016-11-30 10:05 | disposition home or self-care (01) | DRG 181 ==
LOC: ED 09:17 → MEDTELE 12:45 → ED 13:31 → MEDTELE 21:41
PROVIDERS: ADMIT Internal Medicine Hematology & Oncology; ATTEND Internal Medicine
DX: C34.90 Malignant neoplasm of unspecified part of unspecified bronchus or lung (principal); C79.31 Secondary malignant neoplasm of brain; R47.01 Aphasia; F17.210 Nicotine dependence, cigarettes, uncomplicated; Z82.5 Family history of asthma and other chronic lower respiratory diseases; Z80.1 Family history of malignant neoplasm of trachea, bronchus and lung; Z85.828 Personal history of other malignant neoplasm of skin; Z79.1 Long term (current) use of non-steroidal anti-inflammatories (NSAID); Z79.899 Other long term (current) drug therapy
CPT/HCPCS: 36415; 70450; 70553; 71010; 71250; 74177; 77014; 80048; 80053; 80061; 81003; 83605; 84484; 85025; 85610; 85730; 86850; 86900; 86901; 93005; 94760; 99223; 99233; A9270-GY; A9579; J1100; J2060; Q9967

== ENCOUNTER 2016-12-14 22:25 | Inpatient (IN) | payer MEDICARE, BC ==
[2016-12-14] MEDS ORDERED: Ondansetron INJ* 2 MG/ML VIAL IV ONE (23:17)
[2016-12-14] MEDS ORDERED: HYDROmorphone* 1 MG/ML 1 ML SYR IV ONE (23:17)
[2016-12-14] MEDS ORDERED: Ondansetron INJ* 2 MG/ML VIAL ONE (23:29)
[2016-12-14 23:36] LABS: Hematocrit 46 % (42-52); Hemoglobin 14.8 g/dl (14.0-18.0); Mean Corpuscular HGB Conc 32 g/dl (31-36); Mean Corpuscular Hemoglobin 27 pg (27-31); Mean Corpuscular Volume 85 fL (80-94); Mean Platelet Volume 8 um3 (7.4-10.4); Red Blood Count 5.43 10^6/ul (4.0-5.4); Red Cell Distribution Width 15 % (10.5-15); White Blood Count 33.7 10^3/ul (3.5-10.8)
[2016-12-14 23:39] LABS: Comments Flag Yes
[2016-12-14 23:40] LABS: Add Diff/Slide Review? Slide Review Added
[2016-12-14 23:47] LABS: Albumin 3.1 g/dL (3.2-5.2); BUN/Creatinine Ratio 57.1 (8-20); C Reactive Protein 1.72 mg/L (< 5.00); Calcium 8.5 mg/dL (8.6-10.3); EGFR African American 127.4 (>60); Globulin 2.1 g/dL (2-4); Potassium 4.1 mmol/L (3.5-5.0); Total Bilirubin 0.8 mg/dL (0.2-1.0); Total Protein 5.2 g/dL (6.4-8.9)
[2016-12-14 23:49] LABS: Troponin I 0.01 ng/mL (<0.04)
[2016-12-15 00:33] LABS: Immature Granulocytes 7 % (0-9); Neutrophil % 92 % (38-83)
[2016-12-15 00:34] LABS: RBC Morphology Normal (Normal)
[2016-12-15] MEDS ORDERED: HYDROmorphone* 1 MG/ML 1 ML SYR IV SLOW PU ONE ×2 (00:50→01:57)
[2016-12-15] MEDS ORDERED: Iohexol 300* (CONTRAST) 10 ML SDV IV ONE (02:34)
[2016-12-15] MEDS ORDERED: Piperac/Tazob 3.375 gm in NS* 3.375 GM/100 ML BAG IVPB ONE (05:36)
--- NOTE | 2016-12-15 08:16 | RAD ---
Indication: Right-sided abdominal pain vomiting. Contrast: Administered 78.9 ml of OMNIPAQUE 300 mgi/ml CT of the abdomen and pelvis was performed after oral and IV contrast administration. Coronal and sagittal reconstructed images were obtained. The lung bases demonstrates multiple pulmonary nodules. This is consistent with metastatic disease. This is predominantly in the left lower lobe with suggestion of a left infrahilar mass. The heart demonstrates no pericardial effusion. The liver is normal in size. There are several low density lesions within liver consistent with metastatic disease. These were noted previously. There is new intraperitoneal free air noted. This is consistent with a perforated viscus. There is dilated stomach noted. Etiology of the free air is unclear. Gallbladder demonstrates no calcified gallstones. No pericholecystic fluid or wall thickening is identified. Pancreas demonstrates no mass or pancreatic ductal dilatation. The spleen is normal in size. No adrenal lesions are noted. The kidneys demonstrate symmetric nephrograms. Left renal cyst is noted. They measure up to 4.1 cm. Atherosclerotic aorta is noted. Common iliac arteries are unremarkable. The colon is filled with stool. CT of the pelvis demonstrates small bowel loops with hyperemia in the pelvis. Urinary bladder is unremarkable. Moderate degree of free fluid is noted in the pelvis. IMPRESSION: There is new free intraperitoneal air noted consistent with perforated viscus. Ascites is noted. Right pleural effusion. Bilateral lung metastases are noted. Multiple hepatic metastases. Findings were discussed with Dr. Eason at 6:20 AM. As documented on PACS.
[2016-12-15] MEDS ORDERED: Albuterol HFA INHALER* 8 gm MDI INH PRN (08:46)
[2016-12-15] MEDS ORDERED: Albuterol 2.5 MG/3 ML NEB.SOL* (0.083%) INH PRN (08:47)
[2016-12-15] MEDS ORDERED: LORazepam INJ* 2 MG/ML 1 ML VIAL IV PUSH PRN (08:52)
[2016-12-15] MEDS ORDERED: Enoxaparin(*) 40 MG/0.4 ML SYR SUBCUT SCH (09:00)
[2016-12-15] MEDS ORDERED: Piperac/Tazob 3.375 gm in NS* 3.375 GM/100 ML BAG IVPB SCH ×3 (09:00→12:00)
[2016-12-15] MEDS ORDERED: Dexamethasone IV* 4 MG/ML 1 ML (4 MG) IV SLOW PU SCH (09:00)
[2016-12-15] MEDS ORDERED: Dexamethasone IV* 6 MG in NS 0.9% 50 ML* 50 ML IVPB SCH (09:00)
[2016-12-15] MEDS: Morphine INJ* 2 MG/ML 1 ML SYRINGE IV PRN ×2 (10:26→15:26)
[2016-12-15] MEDS: Pantoprazole IV* 40 MG IV SCH (10:28)
[2016-12-15] MEDS: Dexamethasone IV* 4 MG/ML 1 ML (4 MG) IV SLOW PU SCH ×2 (10:38→21:44)
[2016-12-15] MEDS ORDERED: HYDROmorphone* 1 MG/ML 1 ML SYR ONE (12:45)
[2016-12-15] MEDS: HYDROmorphone* 1 MG/ML 1 ML SYR IV SLOW PU PRN ×2 (12:46→17:05)
--- NOTE | 2016-12-15 13:17 | HP ---
HISTORY AND PHYSICAL: DATE OF ADMISSION: 12/14/16 CHIEF COMPLAINT: Abdominal pain. HISTORY OF PRESENT ILLNESS: A 71-year-old male with non-small cell lung cancer who has been treated with Keytruda, but then recently presented with progressive EVENTS INTERN disease, now status post radiation and maintained on dexamethasone 4 mg t.i.d. He had generally been doing fine, very tired after radiation therapy, but otherwise stable. He had been eating reasonably well. No fevers or chills, no diarrhea, no abdominal pain. He developed sudden acute abdominal pain yesterday at night associated with vomiting. He called and was instructed to come to the emergency room. He presented to the emergency room at approximately 11 p.m. CBC showed a white count of 33,000 with a hemoglobin of 15, sodium of 126, and BUN and creatinine consistent with volume depletion. He had a CT scan of the abdomen and pelvis that shows intraperitoneal air consistent with a perforated viscus. No evidence of colitis. The patient has been seen by Dr. Summers. Dr. Summers feels that emergency surgery would be very high risk. He expects prolonged intubation and high likelihood of not surviving the operation. The patient had recently completed his radiation, but not yet started any additional chemotherapy. ALLERGIES: None. PAST MEDICAL HISTORY: 1. Non-small cell lung cancer. He was diagnosed in August with metastatic disease to the lung. He was negative for ALK fusion and EGFR, but had a high PD1 expression. He was started on Keytruda, which he tolerated reasonably well. He presented on 11/27/16 with stroke-like symptoms and MRI of the brain showed multiple EVENTS INTERN metastases. He was placed on steroids which gave him partial improvement of his neuro defects and he was treated with whole brain radiation. He has now completed his whole brain radiation. 2. Kidney stones. 3. COPD. 4. Hyperlipidemia. PAST SURGICAL HISTORY: Tonsillectomy, lithotripsy. He had PleurX catheter drained for pleural effusion. CURRENT MEDICATIONS: 1. Albuterol metered dose inhaler q.4 p.r.n. 2. Keppra 500 p.o. b.i.d. 3. Dexamethasone 4 mg t.i.d. 4. Folic acid 1 mg daily. 5. Acetaminophen with codeine. 6. Alprazolam 0.25 t.i.d. p.r.n. ALLERGIES: None. FAMILY HISTORY: Largely noncontributory, bladder stone, not an extensive cancer history. 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 He has a daughter in [place] and a son who is out in [place]. He has a very supportive family. If he is going to , he wants to at home. REVIEW OF SYSTEMS: Constitutional: Fatigue. No fever or chills. HEENT: Eyes , none. Lungs: No shortness of breath. Cardiac: No chest pain, palpitations. Abdomen: As above. : Decreased urine output in the last 2 days. Musculoskeletal: Negative. Skin: Negative. Hematologic: Negative. PHYSICAL EXAMINATION VITAL SIGNS: BP 104/52, pulse 94, respirations 17, O2 sat 92% on 2 liters oxygen. HEENT: Mucosa is slightly dry. No lesions. No cervical or supraclavicular lymphadenopathy. LUNGS: Slight crackles at the bases, otherwise clear to auscultation. He has reasonable air movement. HEART: Regular rate and rhythm, S1 and S2, tachy around 100. ABDOMEN: Tender with rebound. Good bowel sounds, distended. EXTREMITIES: He has good pulses. No edema. NEUROLOGIC: Slight slurred speech and right facial droop; otherwise, he is conversational and is making clear decisions. LABORATORY DATA: As reviewed above. ASSESSMENT AND PLAN: A 71-year-old male with metastatic non-small cell lung cancer to the brain, comes in with a likely perforated ulcer. He has been seen by Dr. Summers and had an extensive discussion with the family today. Unsure what would happen if he went to surgery. Some chance of repairing the ulcer would give him more time and better quality of life. However, it is unlikely he will be able to go forward with treatment of his cancer again. There is also significant risk of prolonged ICU stay, deterioration, and or severe disability after the procedure. The patient and the both agree that they want quality time and do not want to risk intubation after surgery. They would like supportive care while the son comes in from [place], but then ultimately he wants to at home. 1. We will admit him and place him on IV fluids and IV antibiotics. When the son comes in from [place], we will consider discharge home with hospice and off antibiotics. 2. Hold all oral medications. We will give the Keppra IV and change to dexamethasone IV. 3. Morphine 2 mg q.4 p.r.n. for pain and Ativan 1 mg q. 6 p.r.n. for anxiety. 4. Oxygen as needed. 5. DNR/DNI. 6. I did put him on DVT prophylaxis per protocol. [id number]/[facility] #: [id number] [facility]
[2016-12-15] MEDS ORDERED: Ondansetron ODT TAB* 4 MG SL PRN (15:34)
[2016-12-15] MEDS ORDERED: LORazepam TAB(*) 1 MG PO PRN (15:43)
[2016-12-15] MEDS: Morphine ORAL CONCENTRATE* 5 MG/0.25 ML ORAL.SYRIN SL PRN ×2 (16:31→18:12)
[2016-12-15] MEDS ORDERED: HYDROmorphone* 2 MG/ML 1 ML SYR ONE (18:34)
[2016-12-15] MEDS ORDERED: HYDROmorphone* 1 MG/ML 1 ML SYR IV PRN (18:42)
[2016-12-15] MEDS ORDERED: HYDROmorphone PCA* 20 MG/20 ML PCA.SYRING ONE (19:28)
[2016-12-15] MEDS ORDERED: HYDROmorphone PCA* 20 MG/20 ML PCA.SYRING PCA SCH (20:00)
[2016-12-15 20:04] VITALS: BP 111/82
[2016-12-15] MEDS: Piperac/Tazob 3.375 gm in NS* 3.375 GM/100 ML BAG IVPB SCH (22:11)
--- NOTE | 2016-12-15 22:26 | CONS ---
PALLIATIVE CARE CONSULTATION: DATE OF CONSULT: 12/15/16 PRIMARY CARE PHYSICIAN: Kaleb Bowman MD REQUESTING PHYSICIAN FOR CONSULTATION: Seth Martin MD HOSPITAL COURSE: This is a 71-year-old male with a past medical history of non- small cell lung cancer diagnosed on September 19 with metastatic disease to the brain who is status post chemotherapy treatment who presented to the emergency room on the with abdominal pain, found to have evidence of a perforated viscus. Surgery was consulted and Dr. Summers evaluated the patient and talked to the family at length, discussing poor success with repair of his perforated viscus in light of his comorbidities and recent chemotherapy and that he would likely be able to go forward with treatment of his cancer after his repair and with the risk of prolonged ICU stay, deterioration and mortality. The patient has opted to undergo comfort measures and they do not want to risk prolonged intubation after surgery. The son from [place] is planning to arrive at some point and they are waiting for him before they make decisions initially; however, the patient on my encounter there with his daughter in significant amount of pain, is requesting more medications. He would like to get home and there was discussion about going home with hospice tomorrow which he is interested in. The is coming in later today. At this time, he is not interested in eating or getting out of bed. He is n.p.o. and on bedrest at this time. We discussed switching him over to oral agents in anticipation for discharge with hospice tomorrow and getting better control of his pain as he seems to be quite uncomfortable at this time. Otherwise, remaining review of systems is negative. PAST MEDICAL HISTORY: 1. Non-small cell lung cancer with metastatic disease to the brain, status post chemotherapy. 2. History of kidney stones. 3. COPD. 4. Hyperlipidemia. INPATIENT MEDICATIONS: 1. Lovenox 40 mg subcu daily. 2. Albuterol 2.5 mg q.4 hours as needed. 3. Dexamethasone 6 mg IV b.i.d. 4. Hydromorphone 1 mg IV q.4 hours as needed. 5. Keppra 500 mg IV b.i.d. 6. Ativan 1 mg q.6 hours as needed. 7. Morphine 2 mg q.4 hours as needed. 8. Normal saline 125 cc an hour. 9. Pantoprazole 40 mg IV daily. 10. Zosyn 3.375 g t.i.d. ALLERGIES: No known drug allergies. FAMILY HISTORY: Reviewed and noncontributory. SOCIAL HISTORY: The patient was living at home with his , doing relatively well, ambulating with a walker, mostly independent of his ADLs. 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 MOLST form is a DNR/DNI with do not send to the hospital, no feeding tube, use antibiotics, limited medical interventions. REVIEW OF SYSTEMS: As mentioned in the HPI. PHYSICAL EXAM: Vitals: Temperature 97.5, pulse rate 88, respiratory rate 16, oxygen saturation 95% on room air, blood pressure 90/56. General: He is in moderate distress secondary to pain. His daughter is at the bedside. HEENT: Mucous membranes are dry. Pupils equal, round, reactive, anicteric. Head: Normocephalic. Neck: Supple. No lymphadenopathy. Cardiac: Regular rate and rhythm. Soft systolic murmur heard throughout. Respiratory: Diminished breath sounds. No wheezing, rhonchi, or rales. Abdomen: No active bowel sounds heard. Soft with some mild distention, tenderness, and rebound. His abdomen is mottled appearing. Extremities with some mild mottled appearance as well. No clubbing or cyanosis. Neurologic: Alert and oriented x3. No focal neurologic deficits. LABORATORY DATA: White count 33.7, hemoglobin 14.8, hematocrit 46, platelets 238. Sodium 126, potassium 4.1, chloride 90, bicarb 30, BUN 44, creatinine 0.77 , glucose 160. RADIOGRAPHIC DATA: Shows new free intraperitoneal air noted consistent with perforated viscus. Ascites is noted. Right pleural effusion, bilateral lung metastases are noted. Multiple hepatic metastases. ASSESSMENT: This is a 71-year-old male with a past medical history of non- small cell lung cancer with metastases who presented to the emergency room with abdominal pain, found to have perforated viscus. The family, the patient, and want him on comfort measures. They are waiting for the son to arrive, but the plan is to bring him home with hospice. The patient in some distress at this time due to his discomfort and if the goal is to get him home, I will start transitioning to oral agents including morphine and Ativan and Zofran as well. I discussed IV fluids may contribute to more abdominal distention and discomfort, and once the son arrives, to consider discontinuing the fluids. I also put him on comfort feeds if he is interested. I stopped his Lovenox and stopped his routine blood work as well. Thank you for this consultation. We will follow along with you. TIME SPENT: Greater than 60 minutes spent doing consultation, more than half the time spent in direct patient contact. CC: Kaleb Bowman MD; Seth Martin MD* [id number]/[facility] #: [id number] MTD[facility]
--- NOTE | 2016-12-15 22:26 | CONS ---
CONSULTATION REPORT: DATE OF CONSULT: 12/15/16 REFERRING PROVIDERS: Dr. Gamaliel Eason as well as Dr. Seth Martin. REASON FOR CONSULTATION: Pneumoperitoneum with peritonitis. HISTORY OF PRESENT ILLNESS: Mr. James Monet is a very pleasant 71-year-old gentleman with [id number] lung cancer, which is considered stage IV. He had recently been treated with Keytruda. His diagnosis was only made in August of this year, but he presented recently with progressive neurologic worsening, was noted to have spread to the brain and was treated with radiation and now maintained on high-dose dexamethasone. He had been doing well and ate dinner last night at about 9:30, was awoken with a sudden onset of severe abdominal pain worsening into the evening and called Dr. Martin, presented to the emergency room in the middle of the night. In the emergency room, he was noted to have an elevated white blood count of 33, 000. Vital signs were stable. His abdomen was distended and tender and a CT scan of the abdomen and pelvis showed pneumoperitoneum with free fluid suspected to be oral contrast. No obvious source of the perforation. There was what appeared to be some new probable disease in the liver as well. Surgical consultation was obtained. PAST MEDICAL HISTORY: 1. [id number] lung cancer. 2. History of kidney stones. 3. COPD. 4. Hyperlipidemia. PAST SURGERIES: 1. Tonsillectomy. 2. Lithotripsy of kidney stones. 3. PleurX catheter drainage, which was placed and subsequently discontinued. MEDICATIONS: Include: 1. Albuterol. 2. Keppra. 3. Dexamethasone. 4. Folic acid. 5. Tylenol. 6. Alprazolam. ALLERGIES: He has no known drug allergies. 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 His daughter lives in [place]. REVIEW OF SYSTEMS: Otherwise unremarkable and is unable to accurately obtain from the family at this time. PHYSICAL EXAMINATION: Temperature is 97, pulse is in the 80s, blood pressure 140/73. In general, he is a very slender, ill-appearing male, appears to be uncomfortable. His lungs were clear to auscultation with decreased respiratory effort. Heart was a regular rate and rhythm without murmurs, rubs, or gallops. Abdomen is distended and somewhat firm. There are no prior surgical incisions. He has generalized tenderness with peritoneal signs throughout consistent with acute peritonitis. DIAGNOSTIC STUDIES/LAB DATA: Include a white blood cell count of 33,000. BUN and creatinine are 44 and 0.7. Lactic acid 1.4 and albumin of 3.1. IMPRESSION: 1. Pneumoperitoneum with free intra-abdominal fluid consistent with acute perforated viscus, most likely an upper GI source, i.e., an ulcer. 2. Stage IV lung cancer with a fairly rapid progression of disease over the last several months since his diagnosis. 3. Malnutrition with severe weight loss. 4. Chronic obstructive pulmonary disease. I had a long discussion with the patient and his in the emergency room. We discussed options of surgery with intervention versus observation with comfort care/palliative care. He is extremely at high risk for any surgical intervention and I think that his chance of having a meaningful survival after intervention at this point is quite low and would entail certainly a postoperative intensive care unit stay most likely remaining on the ventilator with chance of becoming ventilator dependent and then subsequently not surviving due to complications such as renal failure, pulmonary failure, infection, sepsis, poor wound healing especially in light of the fact that he has been on immunosuppressive as well as steroids. In addition, he has lost large amount of weight over the past several months. After discussion and enquiring about the patient and his 's wishes, they would like to not proceed with surgery and I feel that this is the most appropriate course that he could be admitted and kept comfortable and his family could be with him for what I think is certainly most likely a terminal condition. I discussed also above with Dr. Martin from Oncology, who saw the patient and agrees with our care. He will be admitted to the oncologic service and will be available for further consultation. Thank you very much for this consultation. CC: [facility]; [facility], Dr. Bowman * [id number]/[facility] #: [id number] [facility] HOSPITALJose
[2016-12-16] MEDS: NS 0.9% 1000 ML* 1,000 ML IV SCH ×2 (03:30→11:31)
[2016-12-16] MEDS: Piperac/Tazob 3.375 gm in NS* 3.375 GM/100 ML BAG IVPB SCH ×2 (05:12→11:32)
[2016-12-16] MEDS: Pantoprazole IV* 40 MG IV SCH (09:59)
[2016-12-16] MEDS: Dexamethasone IV* 4 MG/ML 1 ML (4 MG) IV SLOW PU SCH ×2 (10:02→19:59)
[2016-12-16] MEDS ORDERED: NS 0.9% 1000 ML* 1,000 ML IV SCH (18:30)
== END 2016-12-17 01:51 | disposition expired | DRG 393 ==
LOC: ED 22:25 → SSU 12-15 08:47
PROVIDERS: ADMIT Internal Medicine Hematology & Oncology; ATTEND Internal Medicine Hematology & Oncology
DX: K63.1 Perforation of intestine (nontraumatic) (principal); K65.0 Generalized (acute) peritonitis; C79.31 Secondary malignant neoplasm of brain; C78.7 Secondary malignant neoplasm of liver and intrahepatic bile duct; C79.40 Secondary malignant neoplasm of unspecified part of nervous system; R18.8 Other ascites; C34.90 Malignant neoplasm of unspecified part of unspecified bronchus or lung; E46 Unspecified protein-calorie malnutrition; Z68.1 Body mass index [BMI] 19.9 or less, adult; J44.9 Chronic obstructive pulmonary disease, unspecified; E78.5 Hyperlipidemia, unspecified; Z66 Do not resuscitate; Z79.1 Long term (current) use of non-steroidal anti-inflammatories (NSAID); Z79.899 Other long term (current) drug therapy
CPT/HCPCS: 36415; 74177; 80053; 82150; 82550; 83605; 83690; 84484; 85025; 86140; 93005; 99233; J1100; J1170; J1650; J2270; J2405; J2543; Q9967